=== PATIENT | female | born 1995 | race Caucasian/White ===

== ENCOUNTER 2019-11-06 20:43 | Emergency (ER) | payer OTHER ==
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
--- NOTE | 2019-11-06 21:54 | CRLCR ---
HISTORY: Fall, left knee pain. TECHNIQUE: Three views of the left knee. COMPARISON: No prior. FINDINGS: There is no acute fracture. No suprapatellar joint effusion. No malalignment. Minimal osteophyte formation involving the lateral aspect of lateral tibial plateau. No joint space narrowing. IMPRESSION: No acute fracture or malalignment. Dictated by Adolfo Landa MD @ 11/06/2019 9:52:55 PM Dictated by: Adolfo Landa MD @ 11/06/2019 21:53:00 (Electronically Signed)
== END 2019-11-06 21:49 | disposition home or self-care (01) ==
LOC: JP.ED 20:43
DX: S83.412A Sprain of medial collateral ligament of left knee, initial encounter (principal); S40.212A Abrasion of left shoulder, initial encounter; W22.8XXA Striking against or struck by other objects, initial encounter
CPT/HCPCS: 73562-LT; 99283; 99283-25